=== PATIENT | female | born 1990 | race Caucasian/White ===

== ENCOUNTER 2016-11-20 13:39 | Emergency (ER) | payer MEDICAID ==
--- NOTE | ~2016-11-20 | ER ---
PATIENT'S NAME: PATRICK [facility]VEDO [facility] AGE: 26 Y [address] ROOM: [place] [id number] LOCATION: ED ADMIT DATE: 11/20/2016 ER/Outpatient Report DISCHARGE DATE: 11/20/2016 FAMILY PHYSICIAN: Lacho Aguayo MD ATTENDING PHYSICIAN: Yefri Barry Time of patient arrival: 1339 hours. Time of patient evaluation: 1412 hours. CHIEF COMPLAINT: Shakiness since delivery on 11/17/2016. HISTORY OF PRESENT ILLNESS: This is a 26-year-old female, who presents to the ER. She states she had a vaginal delivery at [facility] three days ago. She states that prior to her delivery, she started having a cough and upper respiratory symptoms. She states that those symptoms have worsened over the past few days. She states that she is having fever and chills. She has had some upper back pain as well and a headache. She states she has also noticed that she has had lumps in both of her armpits and breast tenderness. She states she is currently and feels like she has some abnormal discharge from there and may be concerned that she has mastitis. She states she maybe has a little bit of a sore throat with this as well. She states that no one else at home is ill at this time, and she took Tylenol and ibuprofen last yesterday. She states she was not prescribed anything for pain at home after her delivery. She denies any other problems at this time. The patient states she has no abdominal discomfort. She states that she has her normal vaginal flow from delivery, and she has not noticed any abnormal odor from her discharge. ALLERGIES: NO KNOWN ALLERGIES. MEDICATIONS: Please see medication list in nurse's notes. PAST MEDICAL HISTORY: Recent vaginal delivery three days ago with no complications. PAST SURGERIES: Tonsillectomy. SOCIAL HISTORY: PATIENT'S NAME: PATRICK ACEVEDO [facility] AGE: 26 Y [address] ROOM: [place] [id number] LOCATION: [facility] ADMIT DATE: 11/20/2016 ER/Outpatient Report DISCHARGE DATE: 11/20/2016 FAMILY PHYSICIAN: Lacho Aguayo MD ATTENDING PHYSICIAN: Yefri Barry She smokes half pack a day for the last 11 years. Denies any drug or alcohol use. REVIEW OF SYSTEMS: A 10-point review of system was completed and was negative with the exception of those discussed in the HPI. PHYSICAL EXAMINATION: VITAL SIGNS: Height 5 feet 8 inches stated, weight 68.4 kg taken, blood pressure is 142/83, pulse 96, respirations 16, temperature 102.1 degrees tympanically, saturations 94% on room air. Imelda Coma Score is 15. GENERAL: Alert, calm, well-developed female, in no acute distress, but she does appear not to feel well. HEENT. Head: Normocephalic. Eyes: Pupils are equal and reactive to light. Ears: TMs display good light reflexes bilaterally. Auditory canals clear. Nose: Turbinates pink with no drainage. Throat: No exudates or erythema. She does display moist mucous membranes. LUNGS: She has some crackles to the left lower lobe with auscultation. No wheezing. HEART: Regular rate and rhythm. No lifts, thrills, or murmurs. ABDOMEN: Soft. She has some slight tenderness. No guarding. No rebound tenderness. She has good bowel sounds throughout. EXTREMITIES: No clubbing, cyanosis, or edema. She has full range of motion of all limbs. LABORATORY DATA: CBC: White count is 13.3, hemoglobin is 10.8, platelets 238, ANC is 11.4. INR is 0.93. CMS: Potassium 2.4, sodium is 143, BUN is 5, creatinine is 0.6. GFR is greater than 60. Lactate is 1.0. Procalcitonin is less than 0.05. Urinalysis is negative for any infection. This was done by catheterization. Chest x-ray shows left lower lobe pneumonia. IMPRESSION: 1. Left lower lobe pneumonia. 2. Hypokalemia. 3. Recent vaginal delivery. ASSESSMENT AND PLAN: The patient rested comfortably her entire stay here in the emergency room. We did give her 800 mg of ibuprofen p.o., 40 mEq of potassium p.o., and 1 g of PATIENT'S NAME: PATRICK ACEVEDO [facility] AGE: 26 Y [address] ROOM: [place] [id number] LOCATION: ED ADMIT DATE: 11/20/2016 ER/Outpatient Report DISCHARGE DATE: 11/20/2016 FAMILY PHYSICIAN: Lacho Aguayo MD ATTENDING PHYSICIAN: Yefri Barry. The patient did tolerate this well. I did discuss the patient's care with Dr. Barry. We will send her home with Zithromax to use as directed and albuterol inhaler to use as needed for cough or shortness of breath. I will also write her for prescription for 800 mg of ibuprofen and potassium 20 mEq p.o. once a day for 5 days. She is to monitor symptoms closely, continue to push fluids, and I would like her to follow up with her primary care physician on Tuesday. The patient understands and agrees with care. CLAUDY BENITES PA-C FOR MD JORGE BRISENOJ/modl /[id number] d: 11/20/162243 t: 11/23/162242, OUTPATIENT REPORT
[2016-11-20 14:48] LABS: BILIRUBIN URINE NEGATIVE (NEGATIVE); BLOOD URINE NEGATIVE /UL (NEGATIVE); COLOR URINE YELLOW (YELLOW); GLUCOSE URINE NEGATIVE (NEGATIVE); KETONE URINE NEGATIVE (NEGATIVE); LEUKOCYTES URINE NEGATIVE /UL (NEGATIVE); NITRITE URINE NEGATIVE (NEGATIVE); PROTEIN URINE NEGATIVE (NEGATIVE); SPEC GRAVITY URINE 1.015 (1.003-1.035); TURBIDITY URINE CLEAR (CLEAR); UROBILINOGEN URINE NORMAL (NORMAL)
[2016-11-20 14:51] LABS: BASOPHIL % 0.2 %; EOSINOPHIL # 0.1 K/uL (0.0-0.5); HEMATOCRIT 31.9 % (33.0-46.0); HEMOGLOBIN 10.8 g/dL (11.0-15.0); IMMATURE GRANULOCYTE # 0.1 K/uL (0.0-0.3); IMMATURE GRANULOCYTE % 0.5 %; LYMPHOCYTE % 7.8 %; MCH 31.5 pg (27.0-34.0); MCHC 33.9 gm/dL (32.0-36.5); MONOCYTE # 0.6 K/uL (0.0-1.0); MONOCYTE % 4.4 %; MPV 10.1 fl (9.4-12.4); NEUTROPHIL # (ANC) 11.4 K/uL (1.8-7.8); NEUTROPHIL % 86.1 %; NRBC % 0 /100WBC (0-0.00); PLATELET COUNT 238 K/uL (150-450); RBC 3.43 M/uL (3.50-5.00); RDW-CV 13.1 % (11.9-14.6); WBC 13.3 K/uL (4.0-11.0)
[2016-11-20 15:00] LABS: INR - (THERAPEUTIC) 0.93 (0.92-1.07); PROTIME 9.8 SECONDS (9.8-11.4); PTT 28 SECONDS (25-32)
[2016-11-20 15:10] LABS: ALBUMIN 2.6 gm/dL (3.5-5.0); ALK PHOS 169 IU/L (33-138); ALT 25 IU/L (12-78); ANION GAP 12.4 (10.0-19.0); AST 26 IU/L (10-40); BLOOD UREA NITROGEN 5 mg/dL (6-24); CHLORIDE 107 mMol/L (96-110); CO2 26 mMol/L (22-32); CREATININE 0.6 mg/dL (0.5-1.1); ESTIMATED GFR (MDRD EQUATION) > 60; SODIUM 143 mMol/L (135-145); TOTAL BILIRUBIN 0.4 mg/dL (0.0-1.5); TOTAL PROTEIN 6.2 g/dL (6.0-8.4)
[2016-11-20 15:11] LABS: POTASSIUM 2.4 mMol/L (3.7-5.1)
== END 2016-11-20 16:09 | disposition disaster alternative care site (69) ==
LOC: GMED 13:39
PROVIDERS: Emergency Medicine
PROC: 0T9B70Z Drainage of Bladder with Drainage Device, Via Natural or Artificial Opening (ICD-10-PCS; principal; 2016-11-20)
DX: J18.9 Pneumonia, unspecified organism (principal); E87.6 Hypokalemia; F17.210 Nicotine dependence, cigarettes, uncomplicated; Z90.89 Acquired absence of other organs
CPT/HCPCS: J0696